=== PATIENT | female | born 1965 | race Caucasian/White ===

== ENCOUNTER 2016-12-29 20:55 | Inpatient (IN) | payer MEDICAID ==
[2016-12-29] MEDS ORDERED: Labetalol 25mg/5ml Syringe ONE (21:17)
[2016-12-29] MEDS ORDERED: Labetalol 5 mg/ml Inj 20ML IV STA (21:19)
[2016-12-29 21:26] LABS: BASO % 0.6 % (0.0-2.0); EOS # 0.1 K/uL (0.0-0.7); EOS % 1.4 % (0.0-4.0); LYMPH # 2.3 K/uL (1.0-4.3); LYMPH % 32.3 % (20.0-40.0); MEAN CELL VOLUME 82.2 fL (81.0-99.0); MEAN CORPUSCULAR HEMOGLOBIN 26.9 pg (27.0-31.0); MEAN CORPUSCULAR HGB CONC 32.8 g/dL (33.0-37.0); MONO # 0.5 K/uL (0.0-0.8); MONO % 7.1 % (0.0-10.0); RED CELL DISTRIBUTION WIDTH 15.3 % (11.5-14.5); WHITE BLOOD COUNT 7.2 K/uL (4.8-10.8)
--- NOTE | 2016-12-29 21:29 | C.PDOC ---
History Of Present Illness Patient is a 51 y/o female, whose past medical history includes Schizophrenia, that presents to the emergency department for evaluation of left sided weakness. As per family, pt was about to lose balance, and fall while washing dishes in the kitchen at 20:30 today. Family member states that they helped patient to a chair, and noticed that pt wasn't able to speak, and patient's eyes were open with a right sided gaze. She has not spoken since the onset. She now appears to have a left facial droop. 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 Neurological: Positive for: Weakness (left sided), Change in Speech, Altered Mental Status Physical Exam - Physical Exam Appears: Non-toxic, In Acute Distress Skin: Normal Color, Warm, Dry Head: Atraumatic, Normacephalic Eye(s): right: Other (right gaze; left pupil slightly larger than right) Neck: Normal ROM Chest: Symmetrical Cardiovascular: Rhythm Regular Respiratory: Normal Breath Sounds, No Rales, No Rhonchi, No Wheezing Gastrointestinal/Abdominal: Soft, No Tenderness Extremity: No Pedal Edema, No Swelling Pulses: Left Carotid: Normal, Right Carotid: Normal Neurological/Psych: No Normal Motor, No Normal Sensation (left arm weakness), Slow To Respond With Command, Dysarthria Other Neurological Findings: Facial Palsy (left facial droop) Extremity: Right: No Drift, Left: Falls Before 10 Secs, Upper: No Drift, Falls Before 10 Secs, Lower: No Drift, Falls Before 10 Secs ED Course And Treatment - Laboratory Results Result Diagrams: 12/29/16 21:22 12/29/16 21:22 Lab Interpretation: Abnormal Interpretation Of Abnormal: Troponin 0.353 ECG: Interpreted By Me ECG Rhythm: Sinus Rhythm, Nonspecific Changes (T wave changes ) ECG Interpretation: Abnormal O2 Sat by Pulse Oximetry: 100 (on RA) Pulse Ox Interpretation: Normal - Radiology CXR: Interpreted by Me CXR Interpretation: Yes: No Acute Disease, Other (aortic calcification) Progress Note: Labs, head CT, CXR, EKG ordered and reviewed. Patient was given Labetalol in the ER. Reevaluation Time: 21:57 Reassessment Condition: Improved (Patient more awake and alert. Starting to verbalize and is following commands.) - Physician Consult Information Physician Contacted: Mariama Fowler Outcome Of Conversation: he will see patient in the ED. Patient to be admitted to ICU. Nicardipine drip started. NIHSS Stroke Scale - Date/Time Evaluation Performed Date Performed: 12/29/16 Time Performed: 17:00 When Was NIHSS Performed: Baseline - How Severe is the Stoke Level of Consciousness: 0=Alert LOC to Questions: 0=Both comments correct LOC to commands: 0=Obeys both correctly Best Gaze: 1=Partial gaze palsy Visual: 0=No visual loss Facial: 2=Partial (lower face paralysis) Motor Arm - Left: 2=Falls before 10 sec Motor Arm - Right: 0=No drift Motor Leg - Left: 2=Falls before 5 sec Motor Leg - Right: 1=Drift before 5 sec Limb Ataxia: 0=Absent Sensory: 0=Normal Best Language: 3=Mute Dysarthia: 2=Severe, near unintelligible or worse Extinction & Inattention (Neglect): 0=Normal, no object Score: 13 Severity Of Stroke: 5-15= Moderate Stroke Medical Decision Making Medical Decision Making: Spoke with commercial pest control technician neurosurgery, Dr. Mishra, at 9:15pm who states that head CT is consistent with intercranial hypertensive bleed, and states that patient is not a candidate for neurosurgery. Spoke with commercial pest control technician, Dr. Ang, at 9:20 who advised to admit patient to ICU and medically manage her elevated blood pressure. Disposition - Disposition Disposition: HOSPITALIZED Disposition Time: 22:01 Condition: SERIOUS - POA Present On Arrival: None - Clinical Impression Clinical Impression: Hypertensive intracerebral hemorrhage - Scribe Statement The provider has reviewed the documentation as recorded by the Shiraibe Elias Koehler Provider Attestation: All medical record entries made by the Shiraibe were at my direction and personally dictated by me. I have reviewed the chart and agree that the record accurately reflects my personal performance of the history, physical exam, medical decision making, and the department course for this patient. I have also personally directed, reviewed, and agree with the discharge instructions and disposition.
--- NOTE | 2016-12-29 21:34 | CT ---
EXAM: CT Head Without Intravenous Contrast CLINICAL HISTORY: 51 years old, female; Signs and symptoms; Altered mental status/memory loss; Confusion or disorientation; Additional info: Code stroke TECHNIQUE: Axial computed tomography images of the head/brain without intravenous contrast. This CT exam was performed using one or more of the following dose reduction techniques: automated exposure control, adjustment of the mA and/or kV according to patient size, and/or use of iterative reconstruction technique. EXAM DATE/TIME: 12/29/2016 8:58 PM COMPARISON: No relevant prior studies available. FINDINGS: BRAIN: Focus of acute hemorrhage is seen, centered in the right basal ganglia. This measures 3.6 x 1.7 cm maximally. There is a thin rim of adjacent low density edema, as well as a few nearby tiny satellite hemorrhages. Focal areas of low density are seen in the basal ganglia bilaterally and in the right rajan, most compatible with multiple old/chronic lacunar infarcts. Areas of low density in the periventricular white matter bilaterally, most likely representing mild chronic small vessel ischemic changes. Diffuse, age-related cortical atrophy and ventriculomegaly. No evidence of midline shift, ventricular effacement, basilar cistern effacement, or other significant intracranial mass effect. No evidence of acute extra-axial fluid collections. VENTRICLES: See above. BONES/JOINTS: No acute fractures or other acute bony abnormality noted. SOFT TISSUES: No acute abnormality of the visualized soft tissues is seen. SINUSES: Mucous retention cysts in the maxillary sinuses bilaterally. Remaining visualized paranasal sinuses appear clear. MASTOID AIR CELLS: Mastoid air cells appear clear. IMPRESSION: - 3.6 x 1.7 cm acute hemorrhage in the right basal ganglia. A hypertensive bleed could have this appearance. There is no evidence of midline shift or other significant associated intracranial mass effect. - See above for remaining findings.
[2016-12-29 21:35] LABS: CHLORIDE 99 mmol/L (98-107); POTASSIUM 3.9 mmol/L (3.6-5.2); SODIUM 136 mmol/L (132-148)
[2016-12-29 21:37] LABS: ALB/GLOB RATIO 1.1 (1.0-2.1); ALKALINE PHOSPHATASE 66 U/L (38-126); ALT/SGPT 20 U/L (9-52); AST/SGOT 31 U/L (14-36); BILIRUBIN,TOTAL 0.5 mg/dL (0.2-1.3); BLOOD UREA NITROGEN 17 mg/dL (7-17); CARBON DIOXIDE 25 mmol/L (22-30); CHOLESTEROL 192 mg/dL (0-199); GFR AFRICAN-AMERICAN > 60; GLUCOSE,RANDOM 156 mg/dL (65-105); TOTAL PROTEIN 7.3 g/dL (6.3-8.3)
[2016-12-29 21:38] LABS: CALCIUM 8.3 mg/dl (8.6-10.4)
[2016-12-29] MEDS ORDERED: niCARdipine IV 25 MG in Sodium Chloride 0.9% 240 ML IV STA (21:39)
--- NOTE | 2016-12-29 23:04 | CP.PCM.CON ---
History of Present Illness - History of Present Illness History of Present Illness: Chief complaint: Weakness left side History present illness: 51-year-old female with history of schizophrenia came to the emergency room with left-sided weakness. Patient was doing the region work at the time, patient suddenly started feeling weak, unable to fall. Patient family member hold on her, and then she started having no muscle pain on the left side. She was immediately brought into the emergency room after that. Patient was not able to talk at the time. She was also having some facial weakness according to the family member. She was not able to talk after that. Patient did not have any history of hypertension diabetes or other medical condition. She only takes medications for schizophrenia, and the medications is taken back from [facility] Past medical history: Schizophrenia Allergy: No known drug allergy Personal history nonsmoker nonalcoholic Review of system: Currently patient is having left-sided weakness. Following commands. No history of nausea vomiting, denies any headache. No abdominal pain no chest pain On examination: Vital signs reviewed No neck vein distention noted, patient has a gaze paralyzes to the right side. Left-sided weakness noted. Chest good air entry bilaterally, no wheezing or rales noted CVS regular heart sound, no murmur noted Abdomen soft, nontender. Patient is currently aphasic, facial droop noted on the left side. And left-sided weakness noted. Chest x-ray nonspecific. EKG nonspecific T-wave changes. CAT scan of the head showing evidence of basal ganglia bleed without any mass effect Assessment and recommendation: 51-year-old female with history of schizophrenia on medications. Patient came to the emergency room with the left-sided weakness. Intracranial bleeding involving basal ganglia on the right side. Currently patient is also having very severe hypertension, associated with the neurological symptoms. Hypertensive bleed most likely. Patient will be closely monitored in intensive care unit neuro watch blood pressure control. DVT and GI prophylaxis. No antiplatelets or aspirin at this time. We'll follow the patient Past Patient History - Past Social History Smoking Status: Never Smoked - PSYCHIATRIC Hx Schizophrenia: Yes Hx Substance Use: No - SURGICAL HISTORY Hx Surgeries: Yes Meds Allergies/Adverse Reactions: Allergies Allergy/AdvReac Type Severity Reaction Status Date / Time No Known Allergies Allergy Verified 12/29/16 21:03 - Medications Medications: Current Medications Nicardipine HCl 25 mg/ Sodium (Chloride) 250 mls @ 50 mls/hr IV .Q5H STA; 5 MG/ HR PRN Reason: Protocol Stop: 12/30/16 02:38 Last Admin: 12/29/16 21:50 Dose: 5 mg/hr, 50 mls/hr Pantoprazole Sodium (Protonix Inj) 40 mg IVP DAILY MARNI Results - Vital Signs Recent Vital Signs: Last Vital Signs Temp 97.8 F 12/29/16 23:01 Pulse 89 12/29/16 23:01 Resp 16 12/29/16 23:01 BP 164/91 H 12/29/16 23:01 Pulse Ox 100 12/29/16 23:01 - Labs Result Diagrams: 12/29/16 21:22 12/29/16 21:22
--- NOTE | 2016-12-29 23:39 | CP.PCM.HP ---
History of Present Illness - History of Present Illness History of Present Illness: Please note history is mostly from father and daughter at bedside. Patient was AO x 3 but difficult to understand. HPI: 51 year old female PMHx schizophrenia BIBA after a witnessed fall that occurred at home. As per family members patient was washing the dishes around 8pm this evening and she suddenly started to feel weak and lost her balance. Patient was seen falling to her left side and started to have slurred speech. She did not hit hear head and did not have any bowel/bladder incontinence nor did she have any biting of the tongue, frothing at the mouth. Patient's had to hold her up because she was extremely weak and unable to carry her own weight. When she was put on a chair, and daughter notice her eyes were open and gazing towards the right. Patient was also complaining of muscle pain on her left side but was difficult to understand. Patient's family denied any recent falls. She moved form [facility] 04/09/2014. Patient sees a psychiatrist in [facility] who send her three medications [Abilify 10mg po daily, Aricept 10mg po daily, Zyprexa 5mg po daily]. Patient does not have a physician in the [place] As per daughter since patient had started her psych meds her speech changed and became "thicker" making it difficult for family to understand her completely. Patient also developed a right hand tremor after starting psych medications. Complete ROS unobtainable. PMHx: schizophrenia PSHx: denies ALL: NKDA Medications: Abilify 10mg po daily, Aricept 10mg po daily, Zyprexa 5mg po daily. Social Hx: denies EtOH, tobacco, drug. 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 Family Hx: denies PMD: None ED Course: CT head showed 3.6 x 1.7 cm acute hemorrhage in R basal ganglia. A hypertensive bleed could have this appearance. No evidence of midline shift/ significant associated intracranial mass effect. Patient admitted to ICU. CXR unremarkable and EKG had nonspecific T wave changes Present on Admission - Present on Admission Any Indicators Present on Admission: No Review of Systems - Review of Systems Systems not reviewed;Unavailable: Acuity of Condition Past Patient History - Past Social History Smoking Status: Never Smoked - PSYCHIATRIC Hx Schizophrenia: Yes Hx Substance Use: No - SURGICAL HISTORY Hx Surgeries: Yes Meds Allergies/Adverse Reactions: Allergies Allergy/AdvReac Type Severity Reaction Status Date / Time No Known Allergies Allergy Verified 12/29/16 21:03 Physical Exam - Constitutional Appears: Non-toxic, No Acute Distress - Head Exam Head Exam: ATRAUMATIC, NORMAL INSPECTION, NORMOCEPHALIC - Eye Exam Eye Exam: EOMI, PERRL. absent: Conjunctival injection, Scleral icterus Pupil Exam: PERRL, Unequal (L > R) Additional comments: right sided gaze - ENT Exam ENT Exam: Mucous Membranes Dry Additional comments: L facial droop - Neck Exam Neck exam: Positive for: Normal Inspection. Negative for: Lymphadenopathy, Tenderness - Respiratory Exam Respiratory Exam: Clear to Auscultation Bilateral, NORMAL BREATHING PATTERN. absent: Accessory Muscle Use, Rales, Rhonchi, Wheezes, Respiratory Distress - Cardiovascular Exam Cardiovascular Exam: REGULAR RHYTHM, RRR, +S1, +S2. absent: Systolic Murmur - GI/Abdominal Exam GI & Abdominal Exam: Normal Bowel Sounds, Soft. absent: Firm, Guarding, Rigid, Tenderness - Rectal Exam Rectal Exam: Deferred - Extremities Exam Extremities exam: Positive for: normal capillary refill, normal inspection, pedal pulses present. Negative for: calf tenderness, joint swelling, pedal edema - Back Exam Back exam: NORMAL INSPECTION. absent: rash noted, tenderness - Neurological Exam Neurological exam: Alert, Oriented x3 Additional comments: slow to respond difficult to understand - Psychiatric Exam Psychiatric exam: Flat Affect - Skin Skin Exam: Dry, Intact, Normal Color, Warm Results - Vital Signs Recent Vital Signs: Last Vital Signs Temp 98.4 F 12/29/16 23:16 Pulse 97 H 12/29/16 23:16 Resp 12 12/29/16 23:16 BP 154/104 H 12/29/16 23:16 Pulse Ox 100 12/29/16 23:16 - Labs Result Diagrams: 12/29/16 21:22 12/29/16 21:22 Assessment & Plan - Assessment and Plan (Free Text) Assessment: 51 year old female PMHx schizophrenia BIBA after a witnessed fall that occurred at home Plan: Acute intracerebral hemorrhage -likely secondary to severe HTN -CT head showed 3.6 x 1.7 cm acute hemorrhage in R basal ganglia. A hypertensive bleed could have this appearance. No evidence of midline shift/ significant associated intracranial mass effect -Stroke scale 13 [moderate stroke] -Nicardipine gtt -D5NS with KCl @ 70cc/hr -No antiplatelets or ASA -Neuro checks q2h -Swallow eval and treat -NPO -f/u Echo -f/u repeat head CT -f/u CXR read -PT/OT -f/u HgbA1c and lipid panel -Aspiration precautions -Fall precautions -As per Dr. Cabrera no neurosurgery intervention at this time -Neurology Dr. Ramires consulted HTN Emergency -Nicardipine gtt -Monitor BP PPX -Protonix 40mg ivp daily -D5NS with KCl @ 70cc/hr -VTE ppx c/i -NPO -PT/OT -Aspiration precautions -Fall precautions Case discussed with Dr. Brittany Roca PGY1
[2016-12-30] MEDS ORDERED: niCARdipine IV 25 MG in Sodium Chloride 0.9% 240 ML IV STA (01:05)
[2016-12-30] MEDS: Potassium Chloride 20 MEQ in Dextrose 5%/0.9% NS 1,000 ML IV SCH ×2 (02:50→18:28)
[2016-12-30] MEDS ORDERED: niCARdipine IV 25 MG in Sodium Chloride 0.9% 240 ML IV PRN ×2 (03:52→04:00)
[2016-12-30 06:26] LABS: BASO # 0.1 K/uL (0.0-0.2); BASO % 0.7 % (0.0-2.0); EOS # 0.1 K/uL (0.0-0.7); EOS % 0.8 % (0.0-4.0); HEMATOCRIT 39.3 % (34.0-47.0); LYMPH # 1.9 K/uL (1.0-4.3); LYMPH % 24.3 % (20.0-40.0); MEAN CELL VOLUME 83.1 fL (81.0-99.0); MEAN CORPUSCULAR HEMOGLOBIN 27.4 pg (27.0-31.0); MEAN CORPUSCULAR HGB CONC 32.9 g/dL (33.0-37.0); MEAN PLATELET VOLUME 10.8 fL (7.2-11.7); MONO # 0.6 K/uL (0.0-0.8); MONO % 7.5 % (0.0-10.0); RED CELL DISTRIBUTION WIDTH 15.5 % (11.5-14.5)
[2016-12-30 06:56] LABS: CHLORIDE 101 mmol/L (98-107); SODIUM 139 mmol/L (132-148)
[2016-12-30 06:57] LABS: POTASSIUM 3.8 mmol/L (3.6-5.2)
[2016-12-30 06:58] LABS: BILIRUBIN,TOTAL 0.6 mg/dL (0.2-1.3); CARBON DIOXIDE 28 mmol/L (22-30); CHOLESTEROL 203 mg/dL (0-199); GFR AFRICAN-AMERICAN > 60
[2016-12-30 06:59] LABS: ALB/GLOB RATIO 1.1 (1.0-2.1); ALKALINE PHOSPHATASE 68 U/L (38-126); ALT/SGPT 17 U/L (9-52); AST/SGOT 31 U/L (14-36); BLOOD UREA NITROGEN 14 mg/dL (7-17); CALCIUM 8.5 mg/dl (8.6-10.4); GLUCOSE,RANDOM 107 mg/dL (65-105); PHOSPHOROUS 3.7 mg/dL (2.5-4.5); TOTAL PROTEIN 7.8 g/dL (6.3-8.3)
[2016-12-30 07:00] LABS: MAGNESIUM 1.9 mg/dL (1.6-2.3)
[2016-12-30] MEDS ORDERED: Magnesium Sulfate 1 gm in D5W 1 GM/100 ML BAG IVPB ONE (08:25)
--- NOTE | 2016-12-30 09:13 | RAD ---
HISTORY: code stroke bed 12 COMPARISON: No prior. FINDINGS: LUNGS: No active pulmonary disease. PLEURA: No significant pleural effusion identified, no pneumothorax apparent. CARDIOVASCULAR: Normal. OSSEOUS STRUCTURES: No significant abnormalities. VISUALIZED UPPER ABDOMEN: Normal. OTHER FINDINGS: None. IMPRESSION: No active disease.
--- NOTE | 2016-12-30 13:10 | CARD ---
APPROVED REPORT EKG Measurement Heart [id number] OR [id number] <Conclusion> Normal sinus rhythm Nonspecific T wave abnormality Abnormal ECG
--- NOTE | 2016-12-30 13:20 | CT ---
PROCEDURE: CT HEAD WITHOUT CONTRAST. HISTORY: bleed COMPARISON: 12/29/2016 TECHNIQUE: Axial computed tomography images were obtained through the head/brain without intravenous contrast. Radiation dose: Total exam DLP = 1040.99 mGy-cm. This CT exam was performed using one or more of the following dose reduction techniques: Automated exposure control, adjustment of the mA and/or kV according to patient size, and/or use of iterative reconstruction technique. FINDINGS: HEMORRHAGE: Right basal ganglia hemorrhage grossly unchanged in extent compared to prior CT. Irregularly-shaped hematoma with no change in size or morphology. This extends into the right jenkins radiata. There is surrounding edema. There is no new hemorrhage identified. No intraventricular hemorrhage. No subarachnoid hemorrhage. BRAIN: No mass effect or edema. Small old lacunar infarct left caudate nucleus head, right thalamus and right rajan. Patchy foci of periventricular and deep white matter lucency bilaterally consistent with microvascular ischemic change. No evidence of acute infarct. VENTRICLES: No hydrocephalus. No midline shift. CALVARIUM: Unremarkable. PARANASAL SINUSES: Unremarkable as visualized. No significant inflammatory changes. MASTOID AIR CELLS: Unremarkable as visualized. No inflammatory changes. OTHER FINDINGS: None. IMPRESSION: Right basal ganglia hemorrhage extending into jenkins radiata unchanged in size and morphology from examination of 12/29/2016. Surrounding edema. No intraventricular hemorrhage. No other acute abnormality.
--- NOTE | 2016-12-30 14:29 | CP.PCM.CON ---
History of Present Illness - History of Present Illness History of Present Illness: Mrs. Koehler is a 51-year-old woman with a past medical history of schizophrenia ( recently started on Abilify, Zyprexa and Aricept), who had a witnessed fall that occurred at home. The family provided the history and state that the patient was washing the dishes around and she suddenly started to feel weak and lost her balance due to left side weakness. She was brought to the ED and a CT scan of the head showed a right basal ganglia intraparenchymal hemorrhage. Her initial BP was 223/70 mm Hg. She was treated with IV ant-hypertensives and stabilized in the ICU. The repeat CT head was stable. The patient has some improvement today in her left side weakness. She answered questions appropriately and followed commands briskly. Review of Systems - Review of Systems All systems: reviewed and no additional remarkable complaints except Past Patient History - Past Medical History & Family History Past Medical History?: Yes - Past Social History Smoking Status: Never Smoked - CARDIAC Hx Cardiac Disorders: No - PULMONARY Hx Respiratory Disorders: No - NEUROLOGICAL Hx Neurological Disorder: No - HEENT Hx HEENT Problems: No - RENAL Hx Chronic Kidney Disease: No - ENDOCRINE/METABOLIC Hx Endocrine Disorders: No - HEMATOLOGICAL/ONCOLOGICAL Hx Blood Disorders: No - INTEGUMENTARY Hx Dermatological Problems: No - MUSCULOSKELETAL/RHEUMATOLOGICAL Hx Musculoskeletal Disorders: No Hx Falls: Yes - GASTROINTESTINAL Hx Gastrointestinal Disorders: No - GENITOURINARY/GYNECOLOGICAL Hx Genitourinary Disorders: No - PSYCHIATRIC Hx Schizophrenia: Yes Hx Substance Use: No - SURGICAL HISTORY Hx Surgeries: Yes - ANESTHESIA Hx Anesthesia: Yes Hx Anesthesia Reactions: No Meds Allergies/Adverse Reactions: Allergies Allergy/AdvReac Type Severity Reaction Status Date / Time No Known Allergies Allergy Verified 12/29/16 21:03 - Medications Medications: Current Medications Potassium Chloride 20 meq/ (Dextrose/Sodium Chloride) 1,010 mls @ 70 mls/hr IV .[id number] MARNI Last Admin: 12/30/16 02:50 Dose: 70 mls/hr Nicardipine HCl 25 mg/ Sodium (Chloride) 250 mls @ 20 mls/hr IV .[id number] PRN; 2 MG/HR PRN Reason: Protocol Last Titration: 12/30/16 05:15 Dose: 1.5 mg/hr, 15 mls/hr Pantoprazole Sodium (Protonix Inj) 40 mg IVP DAILY MARNI Last Admin: 12/30/16 10:19 Dose: 40 mg Pneumococcal Polyvalent Vaccine (Pneumovax 23 Vaccine) 0.5 ml IM .ONCE ONE Stop: 12/31/16 10:01 Physical Exam - Constitutional Appears: No Acute Distress - Head Exam Head Exam: ATRAUMATIC, NORMAL INSPECTION, NORMOCEPHALIC - Eye Exam Eye Exam: EOMI, Normal appearance, PERRL - ENT Exam ENT Exam: Mucous Membranes Moist, Normal Exam - Neck Exam Neck exam: Positive for: Normal Inspection - Respiratory Exam Respiratory Exam: Clear to Auscultation Bilateral, NORMAL BREATHING PATTERN - Cardiovascular Exam Cardiovascular Exam: REGULAR RHYTHM, +S1, +S2 - GI/Abdominal Exam GI & Abdominal Exam: Normal Bowel Sounds, Soft. absent: Tenderness - Rectal Exam Rectal Exam: Deferred - Neurological Exam Neurological exam: CN II-XII Intact, Oriented x3 - Expanded Neurological Exam Expanded Patient oriented to: person, place Speech: Slurred Speech Cranial nerves: EOM's Intact: Abnormal Left, Facial Sensation: Abnormal Left, Gag Reflex: Normal, Nystagmus: Normal, Tongue Deviation: Normal Ataxia: No Cerebellar Function: Finger to Nose: Abnormal Left, Heel to Blue: Abnormal Left Upper motor neuron: Babinski Sign: Abnormal Left Sensory exam: Lower Extremity Light Touch: Abnormal Left, Lower Extremity Pin Prick: Abnormal Left, Upper Extremity Light Touch: Abnormal Left, Upper Extremity Pin Prick: Abnormal Left Neuro motor strength exam: Left Upper Extremity: 4, Right Upper Extremity: 5, Left Lower Extremity: 3, Right Lower Extremity: 5 DTR: Achilles Tendon Left: 3+, Achilles Tendon Right: 2+, Bicep Left: 3+, Bicep Right: 2+, Brachioradialis Left: 3+, Brachioradialis Right: 2+, Patellar Left: 3 +, Patellar Right: 2+, Tricep Left: 3+, Tricep Right: 2+ - Psychiatric Exam Psychiatric exam: Flat Affect - Skin Skin Exam: Dry, Intact, Normal Color, Warm Results - Vital Signs Recent Vital Signs: Last Vital Signs Temp 97.4 F L 12/30/16 04:00 Pulse 60 12/30/16 07:00 Resp 11 L 12/30/16 07:00 BP 146/80 12/30/16 06:37 Pulse Ox 100 12/30/16 07:00 - Labs Result Diagrams: 12/30/16 06:20 12/30/16 06:47 Labs: Laboratory Results - last 24 hr 12/30/16 12/30/16 12/30/16 00:37 06:20 06:47 WBC 8.0 RBC 4.73 Hgb 12.9 Hct 39.3 MCV 83.1 MCH 27.4 MCHC 32.9 L RDW 15.5 H Plt Count 221 MPV 10.8 Neut % (Auto) 66.7 Lymph % (Auto) 24.3 Cal[place] % (Auto) 7.5 Eos % (Auto) 0.8 Baso % (Auto) 0.7 Neut # 5.3 Lymph # 1.9 Calvert # 0.6 Eos # 0.1 Baso # 0.1 Sodium 139 Potassium 3.8 Chloride 101 Carbon Dioxide 28 Anion Gap 14 BUN 14 Creatinine 1.0 Est GFR ( Amer) > 60 Est GFR (Non-Af Amer) 59 Random Glucose 107 H Calcium 8.5 L Phosphorus 3.7 Magnesium 1.9 Total Bilirubin 0.6 AST 31 ALT 17 Alkaline Phosphatase 68 Total Creatine Kinase 92 89 CK-MB (Mass) 0.79 0.89 Troponin I, Quant 0.3210 H* 0.3430 H* Total Protein 7.8 Albumin 4.1 Globulin 3.7 Albumin/Globulin Ratio 1.1 Triglycerides 100 D Cholesterol 203 H LDL Cholesterol Direct 99 HDL Cholesterol 62 - Imaging and Cardiology CT scan - head Status: Image reviewed by me, Report reviewed by me (Stable right basal ganglia hypertensive appearing itraparenchymal hemorrhage.) Assessment & Plan (1) Hypertensive intracerebral hemorrhage Assessment and Plan: 1. Continue BP control with IV labetelol or nicardipine drip, if needed. Maintain SBP between 120-160 mm Hg. 2. MRI of the brain with and without contrast; MRA of the head/neck without contrast; 3. Avoid antiplatelet agents; 4. May start DVT Px with subcutatneous heparins 48 hours after bleed; 5. Hold antipsychotic medications and aricept; 6. PT/OT; 7. Maintain head of bed at >30 degrees. Status: Acute Priority: High
--- NOTE | 2016-12-30 18:35 | CP.CCUPN ---
CCU Subjective - Physician Review Subjective (Free Text): 12/30/16 18:32 Patient seen and examined at the bedside. No acute events overnight. No acute distress. Nursing staff reports no issues. The patient is for repeat CT head today. The patient is answering questions and following commands appropriately today. Residual left sided weakness remains (improved from yesterday). Today on rounds, the patient's magnesium was replaced. The patient was also taken off of he nicardimpine drip and placed on labetalol 100mg PO TID and amlodipine 5mg PO BID for blood pressure control. The patient also had a swallow evaluation. Critical Care Time Spent (in minutes): 90 CCU Objective - Vital Signs / Intake & Output Vital Signs (Last 4 hours): Vital Signs Pulse Resp BP Pulse Ox 12/30/16 17:04 70 16 139/94 H 100 12/30/16 16:46 151/76 H 12/30/16 16:17 73 16 158/78 H 100 12/30/16 16:02 75 13 154/78 H 100 12/30/16 15:02 80 14 147/80 100 12/30/16 15:00 77 14 148/73 100 Intake and Output (Last 8hrs): Intake & Output 12/30/16 12/30/16 12/30/16 06:59 14:59 22:59 Intake Total 633.0 725 260 Output Total 1100 200 250 Balance -467.0 525 10 Weight 45.813 kg Intake: IV 148.0 Intake, IV Amount 485 605 260 Left 280 490 210 Left Wrist 205 115 50 Oral 120 Output: Urine 1100 200 250 Urine, Voided 1100 200 250 Other: Voiding Method Bedpan - Physical Exam Head: Negative for: Atraumatic, Normocephalic Pupils: Positive for: PERRL Extroacular Muscles: Positive for: EOMI Conjunctiva: Positive for: Normal Mouth: Positive for: Moist Mucous Membranes. Negative for: Drooling Nose (External): Positive for: Atraumatic Neck: Negative for: JVD, Lymphadenopathy Respiratory/Chest: Positive for: Clear to Auscultation, Good Air Exchange. Negative for: Respiratory Distress, Accessory Muscle Use, Wheezes, Rales, Rhonchi Cardiovascular: Positive for: Regular Rate and Rhythm, Normal S1, S2, Peripheal Pulses Present. Negative for: Murmurs Abdomen: Positive for: Normal Bowel Sounds. Negative for: Tenderness, Distention, Peritoneal Signs, Rebound Upper Extremity: Positive for: Normal Inspection, NORMAL PULSES, Other (Left Sided Weakness). Negative for: Cyanosis, Edema Lower Extremity: Positive for: Normal Inspection, NORMAL PULSES, Other (Left Sided Weakness). Negative for: Edema, CALF TENDERNESS Neurological: Positive for: CN II-XII Intact Skin: Positive for: Warm, Dry, Normal Color. Negative for: Rashes Psychiatric: Positive for: Alert, Oriented x 3 - Medications Active Medications: Active Medications Generic Name Dose Route Start Last Admin Trade Name Freq PRN Reason Stop Dose Admin Amlodipine Besylate 5 mg 12/30/16 18:27 Norvasc PO BID MARNI Labetalol HCl 100 mg 12/31/16 10:00 Trandate PO TID MARNI Pantoprazole Sodium 40 mg 12/30/16 10:00 12/30/16 10:19 Protonix Inj IVP 40 mg DAILY MARNI Administration Pneumococcal Polyvalent Vaccine 0.5 ml 12/31/16 10:00 Pneumovax 23 Vaccine IM 12/31/16 10:01 .ONCE ONE - Patient Studies Lab Studies: Lab Studies 12/30/16 12/30/16 12/30/16 Range/Units 06:47 06:20 00:37 WBC 8.0 (4.8-10.8) K/uL RBC 4.73 (3.80-5.20) Mil/uL Hgb 12.9 (11.0-16.0) g/dL Hct 39.3 (34.0-47.0) % MCV 83.1 (81.0-99.0) fL MCH 27.4 (27.0-31.0) pg MCHC 32.9 L (33.0-37.0) g/dL RDW 15.5 H (11.5-14.5) % Plt Count 221 (130-400) K/uL MPV 10.8 (7.2-11.7) fL Neut % (Auto) 66.7 (50.0-75.0) % Lymph % (Auto) 24.3 (20.0-40.0) % [place] % (Auto) 7.5 (0.0-10.0) % Eos % (Auto) 0.8 (0.0-4.0) % Baso % (Auto) 0.7 (0.0-2.0) % Neut # 5.3 (1.8-7.0) K/uL Lymph # 1.9 (1.0-4.3) K/uL [place] # 0.6 (0.0-0.8) K/uL Eos # 0.1 (0.0-0.7) K/uL Baso # 0.1 (0.0-0.2) K/uL Sodium 139 (132-148) mmol/L Potassium 3.8 (3.6-5.2) mmol/L Chloride 101 (98-107) mmol/L Carbon Dioxide 28 (22-30) mmol/L Anion Gap 14 (10-20) BUN 14 (7-17) mg/dL Creatinine 1.0 (0.7-1.2) MG/DL Est GFR ( Amer) > 60 Est GFR (Non-Af Amer) 59 Random Glucose 107 H (65-105) mg/dL Calcium 8.5 L (8.6-10.4) mg/dl Phosphorus 3.7 (2.5-4.5) mg/dL Magnesium 1.9 (1.6-2.3) mg/dL Total Bilirubin 0.6 (0.2-1.3) mg/dL AST 31 (14-36) U/L ALT 17 (9-52) U/L Alkaline Phosphatase 68 (38-126) U/L Total Creatine Kinase 89 92 (30-135) U/L CK-MB (Mass) 0.89 0.79 (0.0-3.38) ng/mL Troponin I, Quant 0.3430 H* 0.3210 H* (0.00-0.120) ng/mL Total Protein 7.8 (6.3-8.3) g/dL Albumin 4.1 (3.5-5.0) g/dL Globulin 3.7 (2.2-3.9) gm/dL Albumin/Globulin Ratio 1.1 (1.0-2.1) Triglycerides 100 D (0-149) mg/dL Cholesterol 203 H (0-199) mg/dL LDL Cholesterol Direct 99 (0-129) mg/dL HDL Cholesterol 62 (30-70) mg/dL Laboratory Results - last 24 hr 12/30/16 12/30/16 12/30/16 00:37 06:20 06:47 WBC 8.0 RBC 4.73 Hgb 12.9 Hct 39.3 MCV 83.1 MCH 27.4 MCHC 32.9 L RDW 15.5 H Plt Count 221 MPV 10.8 Neut % (Auto) 66.7 Lymph % (Auto) 24.3 [place] % (Auto) 7.5 Eos % (Auto) 0.8 Baso % (Auto) 0.7 Neut # 5.3 Lymph # 1.9 [place] # 0.6 Eos # 0.1 Baso # 0.1 Sodium 139 Potassium 3.8 Chloride 101 Carbon Dioxide 28 Anion Gap 14 BUN 14 Creatinine 1.0 Est GFR ( Amer) > 60 Est GFR (Non-Af Amer) 59 Random Glucose 107 H Calcium 8.5 L Phosphorus 3.7 Magnesium 1.9 Total Bilirubin 0.6 AST 31 ALT 17 Alkaline Phosphatase 68 Total Creatine Kinase 92 89 CK-MB (Mass) 0.79 0.89 Troponin I, Quant 0.3210 H* 0.3430 H* Total Protein 7.8 Albumin 4.1 Globulin 3.7 Albumin/Globulin Ratio 1.1 Triglycerides 100 D Cholesterol 203 H LDL Cholesterol Direct 99 HDL Cholesterol 62 Fingerstick Blood Sugar Results: 164 Review of Systems - Review of Systems All systems: reviewed and no additional remarkable complaints except - EENT Eyes: absent: Blind Spots, Blurred Vision Ears: absent: Decreased Hearing, Tinnitus Nose/Mouth/Throat: absent: Nasal Congestion, Facial Pain, Neck Pain - Cardiovascular Cardiovascular: absent: Chest Pain, Palpitations, Syncope - Respiratory Respiratory: absent: Cough, Dyspnea, Dyspnea on Exertion - Gastrointestinal Gastrointestinal: absent: Abdominal Pain, Constipation, Diarrhea, Nausea, Vomiting - Genitourinary Genitourinary: absent: Change in Urinary Stream, Difficulty Urinating - Musculoskeletal Musculoskeletal: Muscle Weakness (Left Sided) - Integumentary Integumentary: absent: Lesions, Rash, Wounds - Neurological Neurological: Focal Weakness (Left Sided) - Endocrine Endocrine: absent: Cold Intolorance, Heat Intolorance Critical Care Progress Note - Nutrition Nutrition: Nutrition Category Date Time Status Dysphagia/Modified Consistency Diet [DIET] Diets 12/30/16 Lunch Active Assessment/Plan (1) Basal ganglia hemorrhage Current Visit: Yes Status: Acute - Assessment and Plan (Free Text) Plan: Patient Status: Stable Neuro: -AO x 3 -Dr. Ramires following -Imaging : 12/30/16 CT Head- Right basal ganglia hemorrhage extending into jenkins radiata unchanged in size and morphology from examination of 12/29/2016. Surrounding edema. No intraventricular hemorrhage. No other acute abnormality. : 12/29/16 CT Head- - 3.6 x 1.7 cm acute hemorrhage in the right basal ganglia. A hypertensive bleed could have this appearance. There is no evidence of midline shift or other significant associated intracranial mass effect. Cardiovascular: -Hemodynamically stable -Aggressive BP Control - SBP <140mmHg - Labetalol 100mg PO TID - Amlodipine 5mg PO BID -Elevated Troponin (0.3530 > 0.3210 > 0.3430) -Hypercholesterolemia 203 -C/I for ASA therapy Pulmonary: -No issues Gastrointestinal: -Dysphagia Diet - Bite Sized solids - Thin Liquids Hematology: -No acute issues Endocrine: -No issues Renal: -Hypomagnesemia- replaced with 1g mag IV Musculoskeletal: -None Genitourinary: -No issues -Voiding well Infectious Disease: -No issues GI Prophylaxis: Protonix 40mg IV daily DVT Prophylaxis: contra indication for anticoagulation Case Discussed with Dr. Malcolm Kwong PGY1 - Date & Time Date: 12/30/16 Time: 18:40
--- NOTE | 2016-12-30 18:56 | CP.PCM.PN ---
Subjective - Date & Time of Evaluation Date of Evaluation: 12/30/16 Time of Evaluation: 11:00 - Subjective Subjective: Patient was seen and examined at bedside in ICU Patient is lying in bed without any acute distress Objective - Vital Signs/Intake and Output Vital Signs (last 24 hours): Temp Pulse Resp BP Pulse Ox 98.1 F 75 19 141/106 H 100 12/30/16 12:00 12/30/16 18:04 12/30/16 18:04 12/30/16 18:04 12/30/16 18:04 Intake and Output: 12/30/16 12/30/16 06:59 18:59 Intake Total 633.0 985 Output Total 1100 450 Balance -467.0 535 - Medications Medications: Current Medications Amlodipine Besylate (Norvasc) 5 mg PO BID MARNI Labetalol HCl (Trandate) 100 mg PO TID MARNI Pantoprazole Sodium (Protonix Inj) 40 mg IVP DAILY MARNI Last Admin: 12/30/16 10:19 Dose: 40 mg Pneumococcal Polyvalent Vaccine (Pneumovax 23 Vaccine) 0.5 ml IM .ONCE ONE Stop: 12/31/16 10:01 - Labs Labs: 12/30/16 06:20 12/30/16 06:47 PT 11.7 SECONDS (9.7-12.2) 12/29/16 21:22 INR 1.0 12/29/16 21:22 APTT 33 SECONDS (21-34) 12/29/16 21:22 - Head Exam Head Exam: ATRAUMATIC, NORMOCEPHALIC - Eye Exam Eye Exam: Normal appearance Pupil Exam: Unequal - Neck Exam Neck Exam: Normal Inspection - Respiratory Exam Respiratory Exam: Clear to Ausculation Bilateral - Cardiovascular Exam Cardiovascular Exam: REGULAR RHYTHM, +S1, +S2 - GI/Abdominal Exam GI & Abdominal Exam: Soft. absent: Tenderness - Neurological Exam Neurological Exam: Alert, Oriented x3 Neuro motor strength exam: Left Upper Extremity: 5, Right Upper Extremity: 5, Left Lower Extremity: 5, Right Lower Extremity: 5 Assessment and Plan (1) Basal ganglia hemorrhage Status: Acute (2) Hypertensive intracerebral hemorrhage Status: Acute (3) Hypertensive emergency Status: Acute (4) Elevated troponin Status: Acute - Assessment and Plan (Free Text) Plan: Patient is on a han. Control blood pressure Neurology on board Elevated troponins. Stable without any increased. EKG is normal. No cardiac intervention Management as per ICU team
--- NOTE | 2016-12-30 21:36 | CARD ---
APPROVED REPORT EXAM: Two-dimensional and M-mode echocardiogram with Doppler and color Doppler. Other Information Quality : AverageRhythm : NSR INDICATION Acute OH RISK FACTORS Hypertension M-Mode DIMENSIONS RVDd1.46 (2.1-3.2cm)Left Atrium (MM)3.22 (2.5-4.0cm) IVSd0.64 (0.7-1.1cm)Aortic Root2.49 (2.2-3.7cm) LVDd4.10 (4.0-5.6cm)Aortic Cusp Exc.1.64 (1.5-2.0cm) PWd1.09 (0.7-1.1cm)FS (%) 42 % LVDs2.37 (2.0-3.8cm)LVEF (%)74 (>50%) Aortic Valve AoV Peak Hvapmthm972.7cm/Lex Peak GR.7mmHg Mitral Valve MV E Ifseyjpv01.3cm/sMV A Tdfhpcuf01.5cm/sE/A ratio0.8 TDI E/Lateral E'0.0E/Medial E'0.0 Tricuspid Valve TR Peak Hcpexssi786xs/sTR Peak [id number] LEFT VENTRICLE The left ventricle is normal size. There is borderline concentric left ventricular hypertrophy. Left ventricle systolic function is normal. The Ejection Fraction is >70%. There is normal LV segmental wall motion. Transmitral Doppler flow pattern is Grade I-abnormal relaxation pattern. There is no ventricular septal defect visualized. RIGHT VENTRICLE The right ventricle is normal size. The right ventricular systolic function is normal. ATRIA The left atrium size is normal. The right atrium size is normal. AORTIC VALVE The aortic valve is tri-cuspid. The aortic valve is normal in structure. No aortic regurgitation is present. There is no aortic valvular stenosis. MITRAL VALVE The mitral valve is normal in structure. There is no evidence of mitral valve prolapse. There is no mitral valve regurgitation noted. TRICUSPID VALVE The tricuspid valve is normal in structure. There is trace tricuspid regurgitation. Right ventricular systolic pressure is estimated at less than 30 mmHg. There is no pulmonary hypertension. PULMONIC VALVE The pulmonic valve is not well visualized. There is no pulmonic valvular regurgitation. GREAT VESSELS The IVC is normal in size and collapses >50% with inspiration. PERICARDIAL EFFUSION There is no pericardial effusion. <Conclusion> There is borderline concentric left ventricular hypertrophy. Transmitral Doppler flow pattern is Grade I-abnormal relaxation pattern. Left ventricle systolic function is normal. The Ejection Fraction is >70%.
[2016-12-31 06:37] LABS: BASO % 0.5 % (0.0-2.0); EOS # 0.2 K/uL (0.0-0.7); EOS % 2.1 % (0.0-4.0); HEMATOCRIT 38.8 % (34.0-47.0); LYMPH # 1.7 K/uL (1.0-4.3); MEAN CELL VOLUME 83.1 fL (81.0-99.0); MEAN CORPUSCULAR HEMOGLOBIN 27.2 pg (27.0-31.0); MEAN CORPUSCULAR HGB CONC 32.7 g/dL (33.0-37.0); MEAN PLATELET VOLUME 10.4 fL (7.2-11.7); MONO # 0.6 K/uL (0.0-0.8); MONO % 7.8 % (0.0-10.0); RED CELL DISTRIBUTION WIDTH 15.1 % (11.5-14.5); WHITE BLOOD COUNT 7.9 K/uL (4.8-10.8)
[2016-12-31 06:57] LABS: CHLORIDE 98 mmol/L (98-107); POTASSIUM 4.1 mmol/L (3.6-5.2); SODIUM 134 mmol/L (132-148)
[2016-12-31 06:59] LABS: AST/SGOT 31 U/L (14-36); BILIRUBIN,TOTAL 0.7 mg/dL (0.2-1.3); CARBON DIOXIDE 27 mmol/L (22-30); GFR AFRICAN-AMERICAN > 60; TOTAL PROTEIN 7.7 g/dL (6.3-8.3)
[2016-12-31 07:00] LABS: ALKALINE PHOSPHATASE 76 U/L (38-126); ALT/SGPT 18 U/L (9-52); BLOOD UREA NITROGEN 13 mg/dL (7-17); CALCIUM 9.2 mg/dl (8.6-10.4); GLUCOSE,RANDOM 91 mg/dL (65-105); PHOSPHOROUS 3.4 mg/dL (2.5-4.5)
[2016-12-31] MEDS ORDERED: Pneumococcal 23-Valent Vaccine IM ONE ×2 (10:00→10:15)
--- NOTE | 2016-12-31 15:33 | CP.PCM.PN ---
Subjective - Date & Time of Evaluation Date of Evaluation: 12/31/16 Time of Evaluation: 13:20 - Subjective Subjective: Mrs. Koehler was seen and examined today in the ICU with her daughter at bedside. She was awake and interactive while using a foam compression in the left hand for exercise. There were no acute events overnight. She had no complaints. Objective - Vital Signs/Intake and Output Vital Signs (last 24 hours): Temp Pulse Resp BP Pulse Ox 97.8 F 64 15 148/69 100 12/31/16 00:00 12/31/16 14:11 12/31/16 14:11 12/31/16 14:11 12/31/16 14:11 Intake and Output: 12/31/16 12/31/16 06:59 18:59 Intake Total 350 550 Output Total 650 500 Balance -300 50 - Medications Medications: Current Medications Amlodipine Besylate (Norvasc) 5 mg PO BID [facility] Last Admin: 12/31/16 10:04 Dose: 5 mg Labetalol HCl (Trandate) 100 mg PO TID [facility] Last Admin: 12/31/16 14:12 Dose: 100 mg Pantoprazole Sodium (Protonix Inj) 40 mg IVP DAILY [facility] Last Admin: 12/31/16 10:03 Dose: 40 mg - Labs Labs: 12/31/16 06:25 12/31/16 06:26 PT 11.4 SECONDS (9.7-12.2) 12/31/16 06:28 INR 1.0 12/31/16 06:28 APTT 31 SECONDS (21-34) 12/31/16 06:28 - Constitutional Appears: Well - Eye Exam Eye Exam: EOMI, Normal appearance, PERRL - ENT Exam ENT Exam: Mucous Membranes Moist, Normal Exam - Neck Exam Neck Exam: Full ROM, Normal Inspection. absent: Lymphadenopathy - Respiratory Exam Respiratory Exam: Clear to Ausculation Bilateral, NORMAL BREATHING PATTERN - Cardiovascular Exam Cardiovascular Exam: REGULAR RHYTHM, +S1, +S2. absent: Murmur - GI/Abdominal Exam GI & Abdominal Exam: Soft, Normal Bowel Sounds. absent: Tenderness - Neurological Exam Neurological Exam: Alert, Awake, CN II-XII Intact, Oriented x3 Neuro motor strength exam: Left Upper Extremity: 4, Right Upper Extremity: 5, Left Lower Extremity: 4, Right Lower Extremity: 5 - Psychiatric Exam Psychiatric exam: Normal Affect, Normal Mood - Skin Skin Exam: Dry, Intact, Normal Color, Warm Assessment and Plan (1) Hypertensive intracerebral hemorrhage Assessment & Plan: Continue BP control to normalize blood pressure. Avoid antiplatelet agents. DVT Px is okay. PT/OT and ST if needed. May transfer out of the ICU to allow for more comprehensive care plan. Repeat CT head in the morning is recommended. Status: Acute
--- NOTE | 2016-12-31 18:01 | CP.CCUPN ---
CCU Subjective - Physician Review Subjective (Free Text): 12/30/16 18:32 Patient seen and examined at the bedside. No acute events overnight. No acute distress. Nursing staff reports no issues. The patient is for repeat CT head today. The patient is answering questions and following commands appropriately today. Residual left sided weakness remains (improved from yesterday). Today on rounds, the patient's magnesium was replaced. The patient was also taken off of he nicardimpine drip and placed on labetalol 100mg PO TID and amlodipine 5mg PO BID for blood pressure control. The patient also had a swallow evaluation. 12/31/16 17:53 Patient seen and examined at the bedside. No acute events overnight. No acute distress. Nursing staff reports no issues. Patient actively using left arm during breakfast. Patient has no complaints this morning. The patient denies fever, chills, headache, chest pain, SOB, N/V/D/C, abdominal pain, changes in bowel/bladder. Today on rounds, the patient was medically stable for transfer to the medical floor. Critical Care Time Spent (in minutes): 60 CCU Objective - Vital Signs / Intake & Output Vital Signs (Last 4 hours): Vital Signs Pulse Resp BP Pulse Ox 12/31/16 16:11 83 15 157/79 H 12/31/16 16:00 69 17 12/31/16 15:11 67 18 141/81 100 12/31/16 15:00 68 15 100 12/31/16 14:11 64 15 148/69 100 12/31/16 14:00 64 17 100 Intake and Output (Last 8hrs): Intake & Output 12/31/16 12/31/16 12/31/16 06:59 14:59 22:59 Intake Total 50 550 0 Output Total 250 500 200 Balance -200 50 -200 Weight 45.5 kg Intake: Intake, IV Amount 0 0 Left 0 0 Oral 50 550 0 Output: Urine 250 500 200 Urine, Voided 250 500 200 Other: # Voids Urine, Voided 0 1 # Bowel Movements 0 0 - Physical Exam Head: Negative for: Atraumatic, Normocephalic Pupils: Positive for: PERRL Extroacular Muscles: Positive for: EOMI Conjunctiva: Positive for: Normal Mouth: Positive for: Moist Mucous Membranes. Negative for: Drooling Nose (External): Positive for: Atraumatic Neck: Negative for: JVD, Lymphadenopathy Respiratory/Chest: Positive for: Clear to Auscultation, Good Air Exchange. Negative for: Respiratory Distress, Accessory Muscle Use, Wheezes, Rales, Rhonchi Cardiovascular: Positive for: Regular Rate and Rhythm, Normal S1, S2, Peripheal Pulses Present. Negative for: Murmurs Abdomen: Positive for: Normal Bowel Sounds. Negative for: Tenderness, Distention, Peritoneal Signs, Rebound Upper Extremity: Positive for: Normal Inspection, NORMAL PULSES, Neurovascularly Intact, Other (Left Sided Weakness- improved). Negative for: Cyanosis, Edema Lower Extremity: Positive for: Normal Inspection, NORMAL PULSES, Neurovascularly Intact, Other (Left Sided Weakness- improved ). Negative for: Edema, CALF TENDERNESS Neurological: Positive for: CN II-XII Intact, Speech Normal Skin: Positive for: Warm, Dry, Normal Color. Negative for: Rashes Psychiatric: Positive for: Alert, Oriented x 3 - Medications Active Medications: Active Medications Generic Name Dose Route Start Last Admin Trade Name Freq PRN Reason Stop Dose Admin Amlodipine Besylate 5 mg 12/30/16 18:27 12/31/16 10:04 Norvasc PO 5 mg BID MARNI Administration Labetalol HCl 100 mg 12/31/16 10:00 12/31/16 14:12 Trandate PO 100 mg TID MARNI Administration Pantoprazole Sodium 40 mg 12/30/16 10:00 12/31/16 10:03 Protonix Inj IVP 40 mg DAILY MARNI Administration - Patient Studies Lab Studies: Microbiology Studies 12/29/16 23:15 MRSA Culture (Admit) - Final Nose MRSA NOT DETECTED Lab Studies 12/31/16 12/31/16 12/31/16 Range/Units 06:28 06:26 06:25 WBC 7.9 (4.8-10.8) K/uL RBC 4.67 (3.80-5.20) Mil/uL Hgb 12.7 (11.0-16.0) g/dL Hct 38.8 (34.0-47.0) % MCV 83.1 (81.0-99.0) fL MCH 27.2 (27.0-31.0) pg MCHC 32.7 L (33.0-37.0) g/dL RDW 15.1 H (11.5-14.5) % Plt Count 202 (130-400) K/uL MPV 10.4 (7.2-11.7) fL Neut % (Auto) 67.6 (50.0-75.0) % Lymph % (Auto) 22.0 (20.0-40.0) % [place] % (Auto) 7.8 (0.0-10.0) % Eos % (Auto) 2.1 (0.0-4.0) % Baso % (Auto) 0.5 (0.0-2.0) % Neut # 5.3 (1.8-7.0) K/uL Lymph # 1.7 (1.0-4.3) K/uL [place] # 0.6 (0.0-0.8) K/uL Eos # 0.2 (0.0-0.7) K/uL Baso # 0.0 (0.0-0.2) K/uL PT 11.4 (9.7-12.2) SECONDS INR 1.0 APTT 31 (21-34) SECONDS Sodium 134 (132-148) mmol/L Potassium 4.1 (3.6-5.2) mmol/L Chloride 98 (98-107) mmol/L Carbon Dioxide 27 (22-30) mmol/L Anion Gap 13 (10-20) BUN 13 (7-17) mg/dL Creatinine 1.1 (0.7-1.2) MG/DL Est GFR ( Amer) > 60 Est GFR (Non-Af Amer) 53 Random Glucose 91 (65-105) mg/dL Calcium 9.2 (8.6-10.4) mg/dl Phosphorus 3.4 (2.5-4.5) mg/dL Magnesium 2.0 (1.6-2.3) mg/dL Total Bilirubin 0.7 (0.2-1.3) mg/dL AST 31 (14-36) U/L ALT 18 (9-52) U/L Alkaline Phosphatase 76 (38-126) U/L Total Protein 7.7 (6.3-8.3) g/dL Albumin 3.9 (3.5-5.0) g/dL Globulin 3.8 (2.2-3.9) gm/dL Albumin/Globulin Ratio 1.0 (1.0-2.1) Laboratory Results - last 24 hr 12/31/16 12/31/16 12/31/16 06:25 06:26 06:28 WBC 7.9 RBC 4.67 Hgb 12.7 Hct 38.8 MCV 83.1 MCH 27.2 MCHC 32.7 L RDW 15.1 H Plt Count 202 MPV 10.4 Neut % (Auto) 67.6 Lymph % (Auto) 22.0 [place] % (Auto) 7.8 Eos % (Auto) 2.1 Baso % (Auto) 0.5 Neut # 5.3 Lymph # 1.7 [place] # 0.6 Eos # 0.2 Baso # 0.0 PT 11.4 INR 1.0 APTT 31 Sodium 134 Potassium 4.1 Chloride 98 Carbon Dioxide 27 Anion Gap 13 BUN 13 Creatinine 1.1 Est GFR ( Amer) > 60 Est GFR (Non-Af Amer) 53 Random Glucose 91 Calcium 9.2 Phosphorus 3.4 Magnesium 2.0 Total Bilirubin 0.7 AST 31 ALT 18 Alkaline Phosphatase 76 Total Protein 7.7 Albumin 3.9 Globulin 3.8 Albumin/Globulin Ratio 1.0 Fingerstick Blood Sugar Results: 164 Review of Systems - Review of Systems Review of Systems: - Review of Systems All systems: reviewed and no additional remarkable complaints except - EENT Eyes: absent: Blind Spots, Blurred Vision Ears: absent: Decreased Hearing, Tinnitus Nose/Mouth/Throat: absent: Nasal Congestion, Facial Pain, Neck Pain - Cardiovascular Cardiovascular: absent: Chest Pain, Palpitations, Syncope - Respiratory Respiratory: absent: Cough, Dyspnea, Dyspnea on Exertion - Gastrointestinal Gastrointestinal: absent: Abdominal Pain, Constipation, Diarrhea, Nausea, Vomiting - Genitourinary Genitourinary: absent: Change in Urinary Stream, Difficulty Urinating - Musculoskeletal Musculoskeletal: Muscle Weakness (Left Sided) - Integumentary Integumentary: absent: Lesions, Rash, Wounds - Neurological Neurological: Focal Weakness (Left Sided) - Endocrine Endocrine: absent: Cold Intolorance, Heat Intolorance Critical Care Progress Note - Extremities/Vascular Does the Patient have a Central Venous Catheter?: No Does the Patient need a Central Venous Catheter?: No Does the Patient have a Samano Catheter?: No Does the Patient need a Samano Catheter?: No - Prophylaxis GI Prophylaxis GI: PPI - Prophylaxis DVT Prophylaxis DVT: Not Indicated - Nutrition Nutrition: Nutrition Category Date Time Status Dysphagia/Modified Consistency Diet [DIET] Diets 12/30/16 Lunch Active Assessment/Plan (1) Basal ganglia hemorrhage Current Visit: Yes Status: Acute - Assessment and Plan (Free Text) Plan: Patient Status: Stable. Transfer to Medical Floor Neuro: -AO x 3 -Left sided weakness remains- improved -Dr. Ramires following- repeat CT in AM -Imaging : 12/30/16 CT Head- Right basal ganglia hemorrhage extending into jenkins radiata unchanged in size and morphology from examination of 12/29/2016. Surrounding edema. No intraventricular hemorrhage. No other acute abnormality. : 12/29/16 CT Head- - 3.6 x 1.7 cm acute hemorrhage in the right basal ganglia. A hypertensive bleed could have this appearance. There is no evidence of midline shift or other significant associated intracranial mass effect. Cardiovascular: -Hemodynamically stable -BP Control - SBP <140mmHg - Labetalol 100mg PO TID - Amlodipine 5mg PO BID -Elevated Troponin (0.3530 > 0.3210 > 0.3430) -Hypercholesterolemia 203 -C/I for ASA therapy Pulmonary: -No issues Gastrointestinal: -Dysphagia Diet - Bite Sized solids - Thin Liquids Hematology: -No acute issues Endocrine: -No issues Renal: -Hypomagnesemia- replaced with 1g mag IV Musculoskeletal: -None Genitourinary: -No issues -Voiding well Infectious Disease: -No issues GI Prophylaxis: Protonix 40mg IV daily DVT Prophylaxis: contra indication for anticoagulation Case Discussed with Dr. Maverick Kwong PGY1 - Date & Time Date: 12/31/16 Time: 18:04
--- NOTE | 2017-01-01 10:17 | CT ---
PROCEDURE: CT HEAD WITHOUT CONTRAST. HISTORY: ICH COMPARISON: None available. TECHNIQUE: Axial computed tomography images were obtained through the head/brain without intravenous contrast. Radiation dose: Total exam DLP = mGy-cm. This CT exam was performed using one or more of the following dose reduction techniques: Automated exposure control, adjustment of the mA and/or kV according to patient size, and/or use of iterative reconstruction technique. FINDINGS: HEMORRHAGE: There is no significant interval change in size of known acute hematoma in the right basal ganglia which now measures 3.0 x 1.2 cm (anteroposterior by transverse). There is moderate surrounding vasogenic edema and local regional mass effect without evidence of midline shift or herniation. BRAIN: There are mild chronic microangiopathic changes. There is no territorial infarction. No atrophy or chronic microvascular ischemic changes. VENTRICLES: Mild mass effect on the right lateral ventricle. No hydrocephalus. CALVARIUM: The skull base and calvarium are normal. PARANASAL SINUSES: Predominantly clear. MASTOID AIR CELLS: The right mastoid air cells are underdeveloped. The left mastoid air cells are well aerated. OTHER FINDINGS: None. IMPRESSION: No significant interval change in the size of known acute hematoma in the right basal ganglia with moderate surrounding vasogenic edema and mild mass effect on the right lateral ventricle without midline shift or herniation. Mild chronic microangiopathic changes.
[2017-01-01 11:12] LABS: BASO % 0.4 % (0.0-2.0); EOS # 0.1 K/uL (0.0-0.7); EOS % 1.2 % (0.0-4.0); HEMATOCRIT 36.1 % (34.0-47.0); LYMPH # 1.7 K/uL (1.0-4.3); LYMPH % 19.4 % (20.0-40.0); MEAN CELL VOLUME 83.2 fL (81.0-99.0); MEAN CORPUSCULAR HEMOGLOBIN 27.2 pg (27.0-31.0); MEAN CORPUSCULAR HGB CONC 32.7 g/dL (33.0-37.0); MEAN PLATELET VOLUME 10.2 fL (7.2-11.7); MONO # 0.6 K/uL (0.0-0.8); RED CELL DISTRIBUTION WIDTH 15.1 % (11.5-14.5); WHITE BLOOD COUNT 8.6 K/uL (4.8-10.8)
[2017-01-01 11:31] LABS: POTASSIUM 3.9 mmol/L (3.6-5.2)
[2017-01-01 11:33] LABS: BILIRUBIN,TOTAL 0.6 mg/dL (0.2-1.3)
[2017-01-01 11:34] LABS: CALCIUM 9.1 mg/dl (8.6-10.4); TOTAL PROTEIN 7.7 g/dL (6.3-8.3)
[2017-01-01 11:36] LABS: MAGNESIUM 1.7 mg/dL (1.6-2.3)
--- NOTE | 2017-01-01 12:42 | CP.PCM.CON ---
History of Present Illness - History of Present Illness History of Present Illness: 51 years old gentleman with history of hypertension DM, and schizophrenia, was admitted through the emergency department to the intensive care area because of intracerebral bleed. He had changes of her mentation with left-sided weakness the CAT scan revealed basal ganglia bleed. Was treated with IV nicardipine and was seen by neurosurgery no surgery was indicated. From a cardiac viewpoint he had an echocardiogram that was with LVH and normal left ventricular contractility in addition to decreased compliance. No aortic stenosis and normal pericardial effusion. He was hypertensive currently he is on amlodipine, Labetelol, and lisinopril, TNI minimaly elevated, constant stable probably with renal dysfunction Review of Systems - Constitutional Constitutional: Anorexia, Weakness - EENT Eyes: absent: Discharge Ears: absent: Ear Discharge, Dizziness Nose/Mouth/Throat: absent: Epistaxis - Cardiovascular Cardiovascular: absent: Acrocyanosis, Chest Pain, Palpitations, Syncope - Respiratory Respiratory: absent: Cough, Dyspnea, Hemoptysis - Gastrointestinal Gastrointestinal: absent: Abdominal Pain Past Patient History - Past Medical History & Family History Past Medical History?: Yes - Past Social History Smoking Status: Never Smoked - CARDIAC Hx Cardiac Disorders: No - PULMONARY Hx Respiratory Disorders: No - NEUROLOGICAL Hx Neurological Disorder: No - HEENT Hx HEENT Problems: No - RENAL Hx Chronic Kidney Disease: No - ENDOCRINE/METABOLIC Hx Endocrine Disorders: No - HEMATOLOGICAL/ONCOLOGICAL Hx Blood Disorders: No - INTEGUMENTARY Hx Dermatological Problems: No - MUSCULOSKELETAL/RHEUMATOLOGICAL Hx Musculoskeletal Disorders: No Hx Falls: Yes - GASTROINTESTINAL Hx Gastrointestinal Disorders: No - GENITOURINARY/GYNECOLOGICAL Hx Genitourinary Disorders: No - PSYCHIATRIC Hx Schizophrenia: Yes Hx Substance Use: No - SURGICAL HISTORY Hx Surgeries: Yes - ANESTHESIA Hx Anesthesia: Yes Hx Anesthesia Reactions: No Meds Home Medications: Home Medication List Medication Instructions Recorded Confirmed Type Labetalol [Trandate] 100 mg PO TID tab 01/01/17 Rx Lisinopril [Prinivil] 5 mg PO DAILY #30 tablet 01/01/17 Rx Metoprolol Tartrate [Lopressor] 25 mg PO BID PRN tab 01/01/17 Rx amLODIPine [Norvasc] 5 mg PO BID tab 01/01/17 Rx Allergies/Adverse Reactions: Allergies Allergy/AdvReac Type Severity Reaction Status Date / Time No Known Allergies Allergy Verified 12/29/16 21:03 - Medications Medications: Current Medications Amlodipine Besylate (Norvasc) 5 mg PO BID [facility] Last Admin: 01/01/17 09:57 Dose: 5 mg Labetalol HCl (Trandate) 100 mg PO TID [facility] Last Admin: 01/01/17 09:58 Dose: 100 mg Lisinopril (Zestril) 10 mg PO DAILY [facility] Last Admin: 01/01/17 11:31 Dose: 10 mg Pantoprazole Sodium (Protonix Inj) 40 mg IVP DAILY [facility] Last Admin: 01/01/17 09:58 Dose: 40 mg Physical Exam - Constitutional Appears: Non-toxic - Head Exam Head Exam: ATRAUMATIC - Eye Exam Eye Exam: EOMI - ENT Exam ENT Exam: Mucous Membranes Moist - Neck Exam Neck exam: Negative for: Lymphadenopathy, Thyromegaly - Respiratory Exam Respiratory Exam: Clear to Auscultation Bilateral. absent: Rales - Cardiovascular Exam Cardiovascular Exam: REGULAR RHYTHM, Systolic Murmur - GI/Abdominal Exam GI & Abdominal Exam: Normal Bowel Sounds. absent: Organomegaly - Rectal Exam Rectal Exam: Deferred - Extremities Exam Extremities exam: Positive for: normal capillary refill. Negative for: calf tenderness - Neurological Exam Neurological exam: Alert, Oriented x3 - Psychiatric Exam Psychiatric exam: Normal Mood - Skin Skin Exam: Dry Results - Vital Signs Recent Vital Signs: Last Vital Signs Temp 97.7 F 01/01/17 07:10 Pulse 89 01/01/17 07:10 Resp 18 01/01/17 07:10 BP 148/78 01/01/17 09:57 Pulse Ox 100 01/01/17 07:10 - Labs Result Diagrams: 01/01/17 11:04 01/01/17 11:04 Labs: Laboratory Results - last 24 hr 01/01/17 01/01/17 11:04 11:04 WBC 8.6 RBC 4.34 Hgb 11.8 Hct 36.1 MCV 83.2 MCH 27.2 MCHC 32.7 L RDW 15.1 H Plt Count 199 MPV 10.2 Neut % (Auto) 72.0 Lymph % (Auto) 19.4 L [place] % (Auto) 7.0 Eos % (Auto) 1.2 Baso % (Auto) 0.4 Neut # 6.2 Lymph # 1.7 [place] # 0.6 Eos # 0.1 Baso # 0.0 Sodium 134 Potassium 3.9 Chloride 95 L Carbon Dioxide 28 Anion Gap 15 BUN 15 Creatinine 1.3 H Est GFR ( Amer) 52 Est GFR (Non-Af Amer) 43 Random Glucose 122 H Calcium 9.1 Phosphorus 4.0 Magnesium 1.7 Total Bilirubin 0.6 AST 26 ALT 20 Alkaline Phosphatase 66 Total Protein 7.7 Albumin 3.9 Globulin 3.8 Albumin/Globulin Ratio 1.0 Assessment & Plan (1) Basal ganglia hemorrhage Status: Acute (2) Hypertensive emergency Status: Acute
[2017-01-01] MEDS ORDERED: Gadodiamide 287 MG/ML VIAL (15ML) IV ONE (12:43)
--- NOTE | 2017-01-01 13:02 | MRI ---
PROCEDURE: Magnetic Resonance Angiography Brain HISTORY: Intracerebral hemorrhage COMPARISON: None available. TECHNIQUE: 3D time of flight MR angiography of the intracranial arteries was performed. Rotating maximum intensity projection images were generated. FINDINGS: INTERNAL CEREBRAL ARTERIES: Normal in caliber. The skull base, petrous, cavernous and supraclinoid segments are bilaterally widely patient. ANTERIOR CEREBRAL ARTERIES: Normal in caliber. A1 and A2 segments are widely patent. Smaller distal branches unremarkable, as visualized. MIDDLE CEREBRAL ARTERIES: Normal in caliber. Right M1 and M2 segments are widely patent. Perisylvian branches are patent. There is a short segment stenosis in the left mid M1 segment with attenuation perisylvian branches. Left M2 segment is widely patent. POSTERIOR CIRCULATION: Basilar Artery: Normal in caliber. Distal Vertebral Arteries: Normal in caliber. Posterior Cerebral Arteries: There is multifocal stenosis in the P1 segments. Posterior Inferior Cerebellar Arteries: Normal in caliber. ANEURYSM/ VASCULAR MALFORMATIONS: None. OTHER FINDINGS: None. IMPRESSION: 1. Short segment stenosis in the left mid M1 segment and attenuation of the perisylvian branches which could be related to intracranial atherosclerosis. 2. Multifocal stenosis in bilateral posterior cerebral arteries also likely related to intracranial atherosclerosis.
--- NOTE | 2017-01-01 13:53 | CP.PCM.PN ---
Subjective - Date & Time of Evaluation Date of Evaluation: 01/01/17 Time of Evaluation: 13:43 - Subjective Subjective: Mrs. Koehler was seen and examined today while she sat up in her chair. Her was in the room and had some questions regarding the care plan. These questions were answered to his satisfaction. The patient was comfortable and did not have any complaints. There were no acute events overnight. Objective - Vital Signs/Intake and Output Vital Signs (last 24 hours): Temp Pulse Resp BP Pulse Ox 97.7 F 89 18 148/78 100 01/01/17 07:10 01/01/17 07:10 01/01/17 07:10 01/01/17 09:57 01/01/17 07:10 Intake and Output: 01/01/17 01/01/17 06:59 18:59 Intake Total 100 Balance 100 - Medications Medications: Current Medications Amlodipine Besylate (Norvasc) 5 mg PO BID [facility] Last Admin: 01/01/17 09:57 Dose: 5 mg Labetalol HCl (Trandate) 100 mg PO TID [facility] Last Admin: 01/01/17 09:58 Dose: 100 mg Lisinopril (Zestril) 10 mg PO DAILY [facility] Last Admin: 01/01/17 11:31 Dose: 10 mg Pantoprazole Sodium (Protonix Inj) 40 mg IVP DAILY [facility] Last Admin: 01/01/17 09:58 Dose: 40 mg - Labs Labs: 01/01/17 11:04 01/01/17 11:04 PT 11.4 SECONDS (9.7-12.2) 12/31/16 06:28 INR 1.0 12/31/16 06:28 APTT 31 SECONDS (21-34) 12/31/16 06:28 - Neurological Exam Neurological Exam: Alert, Awake, CN II-XII Intact, Oriented x3 Neuro motor strength exam: Left Upper Extremity: 4, Right Upper Extremity: 5, Left Lower Extremity: 4, Right Lower Extremity: 5 Additional comments: Brisk reflexes in the left C5/6 and L3/4 regions. Upgoing plantar response on the left and downgoing on the right. Assessment and Plan (1) Hypertensive intracerebral hemorrhage Assessment & Plan: MRI of the brain was reviewed as was the MRA. There is a focal segment stenosis of the left M1 region. There is no suggestion of an underlying mass in the right basal ganglia hemorrhage. There are other areas of T2 hyperintensity that signify hypertensive disease. The plan is to add lisinopril to the patient's current regimen of Norvasc and labetelol. She will require PT/OT. Aspirin will be held due to the recent bleed. However, there are chronic stenotic lesions in the cerebral circulation that should be addressed with antiplatelet (aspirin 81 mg) and statin therapy. This can be started after 2 weeks. Status: Acute
--- NOTE | 2017-01-01 14:04 | MRI ---
PROCEDURE: MRI BRAIN WITH AND WITHOUT CONTRAST HISTORY: intracerebral hemorrhage COMPARISON: Noncontrast head CT from 01/01/2017 TECHNIQUE: Multiplanar, multisequence MR images of the brain were obtained with and without intravenous contrast enhancement. FINDINGS: HEMORRHAGE: There is redemonstration of a 3.8 x 1.9 cm acute hematoma in the right basal ganglia with moderate surrounding vasogenic edema and mild mass effect on the ipsilateral right lateral ventricle. No evidence of midline shift or herniation. None DWI: No evidence of an acute or early subacute infarction. BRAIN PARENCHYMA: There are moderate chronic microangiopathic changes. There is an old lacunar infarction in the right anterior rajan. There is no mass, mass effect or abnormal extra-axial fluid collection. There is a partially empty sella, otherwise the midline sagittal structures are normal. ENHANCEMENT: No abnormal intracranial enhancement. VENTRICLES: There is mild global parenchymal volume loss and proportionate enlargement of the ventricles and cortical sulci, slightly advanced for the patient's age. CRANIUM: There is normal bone marrow signal pattern. ORBITS: Grossly unremarkable. PARANASAL SINUSES/MASTOIDS: There are retention cysts/polyps in the maxillary sinuses. VASCULAR SYSTEM: There are normal signal voids in the larger intracranial arteries. OTHER FINDINGS: None . IMPRESSION: 1. 3.8 x 1.9 cm acute hematoma in the right basal ganglia with moderate surrounding vasogenic edema and mild mass effect on the right lateral ventricle. No evidence of hydrocephalus, midline shift or herniation. 2. Moderate chronic microangiopathic changes. Old lacunar infarctions in the right anterior rajan. 3. Mild global parenchymal volume loss, slightly advanced for the patient's age.
--- NOTE | 2017-01-01 14:18 | CP.PCM.PN ---
Subjective - Date & Time of Evaluation Date of Evaluation: 01/01/17 Time of Evaluation: 14:15 - Subjective Subjective: Spoke to Dr. Sharp on the phone at 2:15PM. Per Dr. Sharp patient is cleared from a cardiology standpoint to be discharged to Rehab. Case Management will be notified. Objective - Vital Signs/Intake and Output Vital Signs (last 24 hours): Temp Pulse Resp BP Pulse Ox 97.7 F 89 18 148/78 100 01/01/17 07:10 01/01/17 07:10 01/01/17 07:10 01/01/17 09:57 01/01/17 07:10 Intake and Output: 01/01/17 01/01/17 06:59 18:59 Intake Total 100 Balance 100 - Medications Medications: Current Medications Amlodipine Besylate (Norvasc) 5 mg PO BID [facility] Last Admin: 01/01/17 09:57 Dose: 5 mg Labetalol HCl (Trandate) 100 mg PO TID [facility] Last Admin: 01/01/17 09:58 Dose: 100 mg Lisinopril (Zestril) 10 mg PO DAILY [facility] Last Admin: 01/01/17 11:31 Dose: 10 mg Pantoprazole Sodium (Protonix Inj) 40 mg IVP DAILY [facility] Last Admin: 01/01/17 09:58 Dose: 40 mg - Labs Labs: 01/01/17 11:04 01/01/17 11:04 PT 11.4 SECONDS (9.7-12.2) 12/31/16 06:28 INR 1.0 12/31/16 06:28 APTT 31 SECONDS (21-34) 12/31/16 06:28
--- NOTE | 2017-01-01 14:21 | CP.PCM.DIS ---
Provider - Provider Date of Admission: 12/29/16 22:02 Attending physician: Sudheer Soto MD Hospital Course - Lab Results Lab Results: Micro Results 12/29/16 23:15 Nose MRSA Culture (Admit) - Final MRSA NOT DETECTED Most Recent Lab Values WBC 8.6 K/uL (4.8-10.8) 01/01/17 11:04 RBC 4.34 Mil/uL (3.80-5.20) 01/01/17 11:04 Hgb 11.8 g/dL (11.0-16.0) 01/01/17 11:04 Hct 36.1 % (34.0-47.0) 01/01/17 11:04 MCV 83.2 fL (81.0-99.0) 01/01/17 11:04 MCH 27.2 pg (27.0-31.0) 01/01/17 11:04 MCHC 32.7 g/dL (33.0-37.0) L 01/01/17 11:04 RDW 15.1 % (11.5-14.5) H 01/01/17 11:04 Plt Count 199 K/uL (130-400) 01/01/17 11:04 MPV 10.2 fL (7.2-11.7) 01/01/17 11:04 Neut % (Auto) 72.0 % (50.0-75.0) 01/01/17 11:04 Lymph % (Auto) 19.4 % (20.0-40.0) L 01/01/17 11:04 [place] % (Auto) 7.0 % (0.0-10.0) 01/01/17 11:04 Eos % (Auto) 1.2 % (0.0-4.0) 01/01/17 11:04 Baso % (Auto) 0.4 % (0.0-2.0) 01/01/17 11:04 Neut # 6.2 K/uL (1.8-7.0) 01/01/17 11:04 Lymph # 1.7 K/uL (1.0-4.3) 01/01/17 11:04 [place] # 0.6 K/uL (0.0-0.8) 01/01/17 11:04 Eos # 0.1 K/uL (0.0-0.7) 01/01/17 11:04 Baso # 0.0 K/uL (0.0-0.2) 01/01/17 11:04 PT 11.4 SECONDS (9.7-12.2) 12/31/16 06:28 INR 1.0 12/31/16 06:28 APTT 31 SECONDS (21-34) 12/31/16 06:28 Sodium 134 mmol/L (132-148) 01/01/17 11:04 Potassium 3.9 mmol/L (3.6-5.2) 01/01/17 11:04 Chloride 95 mmol/L (98-107) L 01/01/17 11:04 Carbon Dioxide 28 mmol/L (22-30) 01/01/17 11:04 Anion Gap 15 (10-20) 01/01/17 11:04 BUN 15 mg/dL (7-17) 01/01/17 11:04 Creatinine 1.3 MG/DL (0.7-1.2) H 01/01/17 11:04 Est GFR ( Amer) 52 01/01/17 11:04 Est GFR (Non-Af Amer) 43 01/01/17 11:04 Random Glucose 122 mg/dL (65-105) H 01/01/17 11:04 Hemoglobin A1c 5.6 % (4.2-6.5) 12/29/16 21:01 Calcium 9.1 mg/dl (8.6-10.4) 01/01/17 11:04 Phosphorus 4.0 mg/dL (2.5-4.5) 01/01/17 11:04 Magnesium 1.7 mg/dL (1.6-2.3) 01/01/17 11:04 Total Bilirubin 0.6 mg/dL (0.2-1.3) 01/01/17 11:04 AST 26 U/L (14-36) 01/01/17 11:04 ALT 20 U/L (9-52) 01/01/17 11:04 Alkaline Phosphatase 66 U/L (38-126) 01/01/17 11:04 Total Creatine Kinase 89 U/L (30-135) 12/30/16 06:47 CK-MB (Mass) 0.89 ng/mL (0.0-3.38) 12/30/16 06:47 Troponin I, Quant 0.3430 ng/mL (0.00-0.120) H* 12/30/16 06:47 NT-Pro-B Natriuret Pep 503 pg/mL (0-900) 12/29/16 21:22 Total Protein 7.7 g/dL (6.3-8.3) 01/01/17 11:04 Albumin 3.9 g/dL (3.5-5.0) 01/01/17 11:04 Globulin 3.8 gm/dL (2.2-3.9) 01/01/17 11:04 Albumin/Globulin Ratio 1.0 (1.0-2.1) 01/01/17 11:04 Triglycerides 100 mg/dL (0-149) D 12/30/16 06:47 Cholesterol 203 mg/dL (0-199) H 12/30/16 06:47 LDL Cholesterol Direct 99 mg/dL (0-129) 12/30/16 06:47 HDL Cholesterol 62 mg/dL (30-70) 12/30/16 06:47 Blood Type O POSITIVE 12/29/16 21:22 Antibody Screen Negative 12/29/16 21:22 - Hospital Course Hospital Course: On admission: 51 year old female PMHx schizophrenia BIBA after a witnessed fall that occurred at home. As per family members patient was washing the dishes around 8pm this evening and she suddenly started to feel weak and lost her balance. Patient was seen falling to her left side and started to have slurred speech. She did not hit hear head and did not have any bowel/bladder incontinence nor did she have any biting of the tongue, frothing at the mouth. Patient's had to hold her up because she was extremely weak and unable to carry her own weight. When she was put on a chair, and daughter notice her eyes were open and gazing towards the right. Patient was also complaining of muscle pain on her left side but was difficult to understand. Patient's family denied any recent falls. She moved form [facility] 04/09/2014. Patient sees a psychiatrist in [place] who send her three medications [Abilify 10mg po daily, Aricept 10mg po daily, Zyprexa 5mg po daily]. Patient does not have a physician in the [place] As per daughter since patient had started her psych meds her speech changed and became "thicker" making it difficult for family to understand her completely. Patient also developed a right hand tremor after starting psych medications. Complete ROS unobtainable. During Hospital Stay: Patient is stable for discharge to [facility] per cardiology and Neurology. She is to follow up with her primary care doctor and Dr. Ramires neurology within one week of discharge. She is to take the following medications: Amlodipine 5mg PO BID Lisinopril 10mg PO daily Labetalol 100mg PO TID Protonix 40mg IVP daily Per neurology Aspirin will be held due to the recent bleed. However, there are chronic stenotic lesions in the cerebral circulation that should be addressed with antiplatelet (aspirin 81 mg) and statin therapy which can be started after 2 weeks. Patient is to return to the emergency room if symptoms return. All instructions explained to the patient and he family and they agree. Discharge Exam - Head Exam Head Exam: ATRAUMATIC, NORMOCEPHALIC Discharge Plan - Discharge Medications Prescriptions: Lisinopril [Prinivil] 5 mg PO DAILY #30 tablet - Follow Up Plan Condition: SERIOUS Disposition: REHAB FACILITY/REHAB UNIT Instructions: Hemorrhagic Stroke (DC), Hypertension (DC) Additional Instructions: Patient is stable for discharge to [facility] per [facility]ology and Neurology. She is to follow up with her primary care doctor and Dr. Ramires neurology within one week of discharge. She is to take the following medications: Amlodipine 5mg PO BID Lisinopril 10mg PO daily Labetalol 100mg PO TID Protonix 40mg IVP daily Per neurology Aspirin will be held due to the recent bleed. However, there are chronic stenotic lesions in the cerebral circulation that should be addressed with antiplatelet (aspirin 81 mg) and statin therapy which can be started after 2 weeks. Patient is to return to the emergency room if symptoms return. All instructions explained to the patient and he family and they agree. Referrals: Jona Ramires MD [Staff Provider] - Khushboo Sharp MD [Staff Provider] -
[2017-01-01 16:02] VITALS: RESP 20; TEMP 98.7; O2SAT 99
[2017-01-01 18:53] VITALS: BP 118/71; PULSE 84
== END 2017-01-01 22:25 | DRG 810 ==
LOC: C.ER 20:55 → C.9I 22:02 → C.6T 12-31 16:37
PROVIDERS: ADMIT Internal Medicine; ATTEND Internal Medicine
DX: I61.0 Nontraumatic intracerebral hemorrhage in hemisphere, subcortical (principal); I16.1 Hypertensive emergency; I10 Essential (primary) hypertension; E11.9 Type 2 diabetes mellitus without complications; F20.9 Schizophrenia, unspecified; N28.9 Disorder of kidney and ureter, unspecified; R29.810 Facial weakness; Z79.899 Other long term (current) drug therapy